=== PATIENT | female | born 1995 | race Caucasian/White ===

== ENCOUNTER 2020-01-31 16:20 | Inpatient (IN) | payer OTHER ==
[~2020-01-31] VITALS: Ht 167.6 cm; Wt 62.7 kg
--- NOTE | 2020-01-31 16:57 | NUR ---
PATIENT MEETS [facility]. CIWA=21. PATIENT IS WANTING RESIDENTIAL TREATMENT FOER HER AFTERCARE PLAN. PATIENT WAS PROVIDED WITH AFTERCARE OPTIONS. [place] STAFF WILL SEND REFERRAL OFF TO [facility]. TRENT DUARTE B.A. DAIRY TRUCK DRIVER
[2020-01-31 17:15] VITALS: BP 121/73
--- NOTE | 2020-01-31 17:15 | NUR ---
A 24, admitted to , under the services of CARLEEN Briseno DO with a diagnosis of ALCOHOL WITHDRAWAL. Chief complaint is ALCOHOL WITHDRAWAL. Patient arrived via ambulatory from [place]. Monitor applied. Initial assessment completed. Vital signs taken and recorded. CARLEEN BRISENO DO notified of admission to the unit. Orders received. See assessment for past medical history, medications and allergies. Patient and/or family oriented to unit. [facility] visitation policy reviewed. Clothing/patient valuable form completed. LINDSEY RICHARD
[2020-01-31 18:05] LABS: BASO # 0.2 10*3/uL (0.0-0.1); BASO % 1.4 % (0.0-1.0); EOS # 0.3 10*3/uL (0.0-0.4); EOS % 2.6 % (1.0-4.0); HEMATOCRIT 41.3 % (37.0-47.0); LYMPH # 2.5 10*3/uL (1.3-4.4); LYMPH % 18.8 % (27.0-41.0); MEAN CORPUSCULAR HGB 33.5 pg (27.0-31.0); MEAN CORPUSCULAR HGB CONC 34.9 g/dl (33.0-37.0); MEAN PLATELET VOLUME 9.8 fl (9.6-12.3); MONO % 7.7 % (3.0-9.0); NEUT # 9.2 10*3/uL (2.3-7.9); PLATELET COUNT AUTOMATED 296 10*3/uL (130-400); RED CELL DISTRI WIDTH 11.9 % (0-14.5); WHITE BLOOD COUNT 13.3 10*3/uL (4.8-10.8)
[2020-01-31 18:14] LABS: INTERNATIONAL NORM RATIO 0.9 (2.0-3.5)
[2020-01-31 18:20] LABS: ALKALINE PHOSPHATASE 81 U/L (45-117); BUN 11 mg/dl (7-24); CHLORIDE 106 mmol/L (98-107); CREATININE 0.87 mg/dL (0.55-1.02); POTASSIUM 3.5 mmol/L (3.5-5.1); SGOT/AST 18 IU/L (3-35); SGPT/ALT 43 U/L (12-78); SODIUM 139 mmol/L (136-145); TOTAL PROTEIN 7.6 gm/dL (6.4-8.2)
[2020-01-31 18:25] LABS: BETA-HCG, QUANT < 1.0 mIU/mL (1-3)
--- NOTE | 2020-01-31 19:00 | NUR ---
ASSUMED CARE FOR THIS PT AT THIS TIME. PT DROWSY. BED ALARM ON IN LOW POSITION W/WHEELS LOCKED. CALL LIGHT IN REACH.
--- NOTE | 2020-01-31 19:00 | NUR ---
1 MG ATIVAN VIA IV GIVEN AT THIS TIME FOR S/S OF ANXIETY AND PATIENT STATING THAT SHE "FEELS LIKE SHE IS HAVING A PANIC ATTACK". PT TOLERATED WELL. WILL MONITOR FOR EFFECTIVENESS. SAFETY MEASURES IN PLACE. CALL LIGHT IN REACH.
--- NOTE | 2020-01-31 19:00 | NUR ---
ASSUMED CARE FOR THIS PT AT THIS TIME. PT DROWSY. AWOKE TO VERBAL STIMULI. 3 RAILS UP FOR SAFETY, BED IN LOW POSITION W/WHEELS LOCKED AND ALARM ON. CALL LIGHT IN REACH.
--- NOTE | 2020-01-31 19:06 | NUR ---
IV started left antecubital with #22 protective cath after 0 attempts. Site prepped with Chloroprep. Sterile dressing applied. Patient tolerated procedure well. LINDSEY RICHARD
[2020-01-31 19:47] LABS: URINE AMPHETAMINES < 1000 (1000ng/ml); URINE BARBITURATES > 200 (200ng/ml); URINE BENZODIAZEPINES < 200 (200ng/ml); URINE CANNABINOIDS (THC) < 50 (50ng/ml); URINE COCAINE < 300 (300ng/ml); URINE METHADONE < 300 (300ng/ml); URINE OPIATES < 300 (300ng/ml)
[2020-01-31 19:53] LABS: URINE PHENCYCLIDINE < 25 (25ng/ml)
[2020-01-31 20:00] VITALS: BP 114/66
[2020-01-31] MEDS ORDERED: WELLBUTRIN SR200 MG PO (20:02)
[2020-01-31] MEDS ORDERED: FLUVOXAMINE100 MG PO (20:03)
--- NOTE | 2020-01-31 20:08 | NUR ---
MED REC UPDATED PER PATIENT.
--- NOTE | 2020-01-31 23:30 | NUR ---
PT RESTING QUIETLY IN BED. NO S/S OF WITHDRAWALS OR DISTRESS NOTED.
[2020-02-01] VITALS: BP 110/68
--- NOTE | 2020-02-01 06:27 | NUR ---
PT MEDICATED W/VISTARIL FOR C/O ANXIETY.
[2020-02-01 06:33] LABS: BASO # 0.2 10*3/uL (0.0-0.1); BASO % 2.1 % (0.0-1.0); EOS # 0.5 10*3/uL (0.0-0.4); EOS % 6.6 % (1.0-4.0); HEMATOCRIT 42.1 % (37.0-47.0); MEAN CELL VOLUME 97.9 fl (81.0-99.0); MEAN CORPUSCULAR HGB 32.8 pg (27.0-31.0); MEAN CORPUSCULAR HGB CONC 33.5 g/dl (33.0-37.0); MEAN PLATELET VOLUME 10.2 fl (9.6-12.3); MONO # 0.8 10*3/uL (0.1-1.0); MONO % 9.5 % (3.0-9.0); NEUT # 3.8 10*3/uL (2.3-7.9); NEUT % 45.6 % (47.0-73.0); PLATELET COUNT AUTOMATED 274 10*3/uL (130-400); RED CELL DISTRI WIDTH 11.9 % (0-14.5); WHITE BLOOD COUNT 8.2 10*3/uL (4.8-10.8)
--- NOTE | 2020-02-01 06:34 | NUR ---
DR. URRUTIA NOTIFIED OF PT'S C/O RLS AND NO REQUIP ORDERED AT THIS TIME. T.O. RCVD FOR PRN REQUIP ORDERED.
--- NOTE | 2020-02-01 06:37 | NUR ---
PT MEDICATED W/ROBAXIN FOR C/O MUSCLE ACHES IN HER CHEST. PT AGITATED AND CURSING AND YELLING AT STAFF. FOOD AND FLUIDS GIVEN PER PT REQUEST. PT WANTING A NICOTROL INHALER. PT REMINDED THAT WE HAVE TO WAIT UNTIL PHARMACY OPENS BUT THIS NURSE WILL CALL PHARMACY WHEN THEY OPEN AND MESSAGE ALREADY SENT TO PHARMACY LAST NIGHT. PT VERBALLY ACOUSTIC TO THIS NURSE. ALL NEEDS MET. CALL LIGHT IN REACH.
--- NOTE | 2020-02-01 07:30 | NUR ---
TOOK OVER CARE OF PT. PT SITTING UP IN BED. EYES OPEN. ALERT ORIENTED AND APPROPRIATE SPEECH. PT COOPERATIVE AT THIS TIME. NO S/S OF DISTRESS NOTED. WILL MONITOR. CALL LIGHT IN REACH.
[2020-02-01 08:00] VITALS: BP 94/54
--- NOTE | 2020-02-01 08:30 | NUR ---
DR ZHOU NOTIFIED THAT PT REQUESTS NICODERM PATCH RATHER THAN NICOTROL INHALER. ORDERS GIVEN TO PLACE ORDER FOR 14 MG PATCH. WILL NOTIFY PATIENT OF CHANGES.
--- NOTE | 2020-02-01 09:06 | NUR ---
NICODERM PATCH APPLIED AT THIS TIME. NICOTROL INHALER AND CARTRIDGES LOCKED IN [place]. PT SLEEPING, AROUSES EASILY. ALL OTHER AM MEDICATIONS GIVEN AT THIS TIME. PT CURRENTLY DENIES ALL OTHER WITHDRAWAL S/S. PT LETHARGIC AND FALLS BACK TO SLEEP EASILY. C SOFTWARE DEVELOPER IN TACT. RESPIRATIONS EASY AND UNLABORED ON ROOM AIR. SAFETY MEASURES IN PLACE. HOB ELEVATED, BED ALARM IN TACT FOR INCREASED SAFETY FOR PATIENT AT THIS TIME. WILL MONITOR. CALL LIGHT IN REACH.
[2020-02-01 12:00] VITALS: BP 104/74
--- NOTE | 2020-02-01 12:00 | NUR ---
REQUIP AND ROBAXIN GIVEN TO PT AT THIS TIME FOR C/O RESTLESS LEGS AND MUSCLE ACHES. WILL MONITOR FOR EFFECTIVENESS.
--- NOTE | 2020-02-01 12:18 | NUR ---
DR ZHOU NOTIFIED THAT PT STATES THAT SHE WOULD LIKE TO TALK TO A PSYCHIATRIST.
--- NOTE | 2020-02-01 12:28 | NUR ---
PT GIVEN VISTARIL AT THIS TIME FOR C/O ANXIETY. WILL MONITOR FOR EFFECTIVENESS. CALL LIGHT IN REACH.
--- NOTE | 2020-02-01 12:55 | NUR ---
SPOKE WITH [facility] NURSE REGARDING CONSULT. INFORMATION TAKEN AND WILL BE FORWARDED TO APPROPRIATE STAFF.
--- NOTE | 2020-02-01 13:00 | NUR ---
REQUIP AND ROBAXIN EFFECTIVE. PT ASLEEP AT THIS TIME. RESPIRATIONS EASY AND UNLABORED ON ROOM AIR. CALL LIGHT IN REACH.
--- NOTE | 2020-02-01 13:28 | NUR ---
VISTARIL EFFECTIVE PER PT. PT SLEEPING IN BED.
--- NOTE | 2020-02-01 15:52 | NUR ---
PT SLEEPING IN BED AT THIS TIME. RESPIRATIONS EASY AND UNLABORED ON ROOM AIR. NO S/S OF DISTRESS NOTED. SAFETY MEASURES IN PLACE. CALL LIGHT IN REACH.
[2020-02-01 16:00] VITALS: BP 105/54
--- NOTE | 2020-02-01 17:54 | NUR ---
PT GIVEN MOTRIN,ROBAXIN,AND ATIVAN VIA IVP AT THIS TIME FOR C/O HEADACHE,MUSCLE ACHES, AND MODERATE S/S OF ANXIETY. WILL MONITOR FOR EFFECTIVENESS. PT SITTING UP IN BED. RESPIRATIONS UNLABORED ON ROOM AIR. SAFETY MEASURES ARE IN PLACE. CALL LIGHT IN REACH.
--- NOTE | 2020-02-01 18:54 | NUR ---
ROBAXIN, MOTRIN, AND ATIVAN EFFECTIVE PER PT.
[2020-02-01 20:00] VITALS: BP 105/61
--- NOTE | 2020-02-01 20:00 | NUR ---
PATIENT IN BED SLEEPING. AROUSES AFTER MULTIPLE TIMES OF CALLING HER NAME. DENIES COMPLAINTS OF PAIN OR DISCOMFORT. WILL CONTINUE TO MONITOR. CALL LIGHT IN REACH.
[2020-02-02] VITALS: BP 103/59
[2020-02-02 08:00] VITALS: BP 95/53
--- NOTE | 2020-02-02 08:38 | NUR ---
PT RESTING IN BED. NO DISTRESS NOTED. WILL MONITOR
--- NOTE | 2020-02-02 08:40 | NUR ---
PT YELLING , VERY IRRITATED . PT INSTRUCTED SHE WOULD HAVE TO KEEP HER VOICE DOWN
--- NOTE | 2020-02-02 08:47 | NUR ---
PT REQUESTED AND GIVEN ROBAXIN FOR MUSCLE ACHES AND VISTARIL FOR ANXIETY WILL MONITOR
--- NOTE | 2020-02-02 09:30 | NUR ---
PT STATES THAT VISTARIL AND ROBAXIN HELPED A LITTLE WILL MONITOR
--- NOTE | 2020-02-02 11:56 | NUR ---
PT REQUESTED AND GIVEN ATIVAN FOR ANXIETY WILL MONITOR
--- NOTE | 2020-02-02 12:30 | NUR ---
PT RESTING IN BED. EYES CLOSED. ATIVAN APPEARS EFFECTIVE. WILL MONITOR
--- NOTE | 2020-02-02 16:00 | NUR ---
PT YELLING , CUSSING. PT TOLD SHE WILL HAVE TO WATCH HER MOUTH AND KEEP HER VOICE DOWN. PT YELLING SHE NEEDS A HIGHER DOSE NICOTINE PATCH, THREATHENING TO LEAVE AMA. AND WANTS A SHOWER
--- NOTE | 2020-02-02 16:16 | NUR ---
PT REQUESTED AND GIVEN VISTARIL FOR ANXIETY WILL MONITOR
--- NOTE | 2020-02-02 17:06 | NUR ---
PT JUST GOT OUT OF SHOWER, RESTING IN BED.
--- NOTE | 2020-02-02 18:29 | NUR ---
PT MEDICATED WITH IV ATIVAN FOR ANXIETY WILL MONITOR
[2020-02-02 20:00] VITALS: BP 113/61
--- NOTE | 2020-02-02 22:27 | NUR ---
PATIENT MEDICATED WITH TRAZODONE FOR COMPLAINTS OF INSOMNIA. WILL MONITOR FOR EFFECTIVENESS.
--- NOTE | 2020-02-02 22:32 | NUR ---
PATIENT MEDICATED WITH ATIVAN 1MG FOR COMPLAINTS OF ANXIETY. WILL MONITOR FOR EFFECTIVENESS.
--- NOTE | 2020-02-02 23:33 | NUR ---
TRAZODONE AND ATIVAN EFFECTIVE. PATIENT IN BED WITH EYES CLOSED. NO SIGNS OR SYMPTOMS OF DISTRESS NOTED. WILL CONTINUE TO MONITOR. CALL LIGHT IN REACH.
--- NOTE | 2020-02-02 23:48 | NUR ---
PATIENT MEDICATED WITH ROBAXIN FOR NECK AND MUSCLE CRAMPING AND MOTRIN. WILL MONITOR FOR EFFECTIVENESS.
[2020-02-03] VITALS: BP 101/58
--- NOTE | 2020-02-03 01:27 | NUR ---
MOTRIN AND ROBAXIN EFFECTIVE. PATEINT IN BED SLEEPING AT THIS TIME.
--- NOTE | 2020-02-03 06:12 | NUR ---
PATIENT MEDICATED WITH ATIVAN FOR COMPLAINTS OF ANXIETY AND AGITATION AND ROBAXIN FOR COMPLAINTS OF MUSCLE ACHES. WILL MONITOR FOR EFFECTIVENESS. CALL LIGHT IN REACH.
[2020-02-03 06:56] LABS: BASO # 0.2 10*3/uL (0.0-0.1); EOS # 0.7 10*3/uL (0.0-0.4); EOS % 9.4 % (1.0-4.0); HEMATOCRIT 38.9 % (37.0-47.0); LYMPH % 37.8 % (27.0-41.0); MEAN CORPUSCULAR HGB 33.2 pg (27.0-31.0); MEAN CORPUSCULAR HGB CONC 33.2 g/dl (33.0-37.0); MEAN PLATELET VOLUME 10.2 fl (9.6-12.3); MONO # 0.6 10*3/uL (0.1-1.0); MONO % 7.7 % (3.0-9.0); NEUT # 3.4 10*3/uL (2.3-7.9); PLATELET COUNT AUTOMATED 254 10*3/uL (130-400); RED BLOOD COUNT 3.89 10*6/uL (4.10-5.10); RED CELL DISTRI WIDTH 11.8 % (0-14.5); WHITE BLOOD COUNT 7.9 10*3/uL (4.8-10.8)
[2020-02-03 07:31] LABS: CREATININE 0.86 mg/dL (0.55-1.02)
[2020-02-03 08:00] VITALS: BP 102/55
[2020-02-03] MEDS ORDERED: THERA TABLET400 MCG PO (09:55)
[2020-02-03] MEDS ORDERED: VITAMIN B-1100 M1 PO (09:55)
[2020-02-03] MEDS ORDERED: NATURE'S BLEND F1 MG PO (09:55)
[2020-02-03] MEDS ORDERED: FLUVOXAMINE50 MG PO (09:55)
[2020-02-03] MEDS ORDERED: TRAZODONE50 MG PO (09:55)
--- NOTE | 2020-02-03 11:53 | NUR ---
Discharge instructions reviewed with patient/family. Patient receptive and verbalizes understanding. Follow-up care arranged. Written instructions given to patient/family. MAYELIN COLÓN
== END 2020-02-03 11:53 | disposition home or self-care (01) | DRG 775 ==
LOC: 4E 16:20
PROVIDERS: Student in an Organized Health Care Education/Training Program; ADMIT Emergency Medicine
DX: F10.239 Alcohol dependence with withdrawal, unspecified (principal); F10.220 Alcohol dependence with intoxication, uncomplicated; F41.9 Anxiety disorder, unspecified; G25.81 Restless legs syndrome; F42.9 Obsessive-compulsive disorder, unspecified; F17.200 Nicotine dependence, unspecified, uncomplicated; F33.2 Major depressive disorder, recurrent severe without psychotic features; Z71.6 Tobacco abuse counseling; Z79.899 Other long term (current) drug therapy